=== PATIENT | male | born 1930 | race Caucasian/White ===

== ENCOUNTER 2021-02-13 10:20 | Emergency (ER) | payer OTHER ==
[2021-02-13 10:41] VITALS: BP 113/67; PULSE 68; TEMP 98.2; BMI 28.0
[2021-02-13] MEDS ORDERED: CARBAMIDE PEROXIDE 6.5% OTIC 15 ML BOTTLE ONE (10:54)
[2021-02-13] MEDS ORDERED: CARBAMIDE PEROXIDE 6.5% OTIC 15 ML BOTTLE AU ONE (10:54)
== END 2021-02-13 11:50 | disposition home or self-care (01) ==
LOC: FER 10:20
DX: H61.23 Impacted cerumen, bilateral (principal)
CPT/HCPCS: 99283-25